=== PATIENT | male | born 1985 | race Caucasian/White ===

== ENCOUNTER 2016-08-28 11:08 | Emergency (ER) | payer BC ==
[~2016-08-28] VITALS: Ht 193 cm; Wt 94.5 kg
[~2016-08-28 11:08] MED LIST: AMOX500T2 PO; FLUT16SP EA NOSTRIL; PRED20TA PO; PRED50TA PO
[2016-08-28 11:11] VITALS: Ht 193 cm; Wt 94.5 kg
--- OUTSIDE RECORDS SUMMARY | 2016-08-28 11:14 | XMS REPORT | Continuity of Care Document ---
Author Author [facility] Organization [facility] Address Unknown Phone Unavailable Support Name Relationship Address Phone RADHAJAI PETTY Brionna REDD Caregiver [address] [place] [address] Unavailable ULICES GLEZ Next Of Kin [address] [place] [id number] Insurance Providers Guarantor Savage Glez Address [address] [place] [address] Email [email or web address] [email or web address] Other Policy Number [id number] Subscriber's Name ShahrzadRyanne maguirent Relationship 18 Self Group Number [id number] Chief Complaint and Reason for Visit Chief Complaint General Reason for Visit Sinus pain [id number] Problems Past Problems Medical Problem Onset Date Pain, dental Unknown Sinus pain Unknown Medications Current Home Medications Medication Dose Units Route Directions Days Qty Instructions Start Date Fluticasone Propionate (Fluticasone Prop 50 Mcg/Actuation Nasal [place]) 120 [place]/16 G [place] 2 [place] Each Nostril Daily 30 Days [address] [employer] [facility] [facility] [address] [facility] [phone] 08/14/16 Prednisone 50 Mg Tablet 50 Mg Oral Give With Breakfast 5 Days 5 Tablet Take 1 tablet, by mouth, once a day with breakfast. Supervising physician Dr. Ricky Lane [employer] [facility] [address] [facility] [phone] 08/14/16 Social History No social history. Hospital Discharge Instructions No hospital discharge instructions. Plan of Care Discharge Date 08/14/16 9:48am Disposition 01 DISCHARGED HOME, SELF-CARE Condition at Discharge Stable Instructions/Education Provided Sinusitis (ED) Toothache (ED) Prescriptions See Medication Section Additional Instructions/Education Take ibuprofen up to 800 mg every 8 hours as needed for sinus and dental pain. Use prednisone daily as directed. Use fluticasone nasal spray or an equivalent daily as directed for the next 3-4 weeks. Follow with dentist if symptoms are not improving in the next 10 days. Follow with primary care provider if symptoms are not improving or if they're worsening. Functional Status No functional status results. Allergies, Adverse Reactions, Alerts No known allergies. Immunizations No immunization records. Vital Signs Acute Vital Signs Vital Response Date/Time Temperature (Fahrenheit) 97.4 deg F (96.8 - 99.1) 08/14/2016 9:10am Temperature (Calculated Celsius) 36.18146 degrees C (36.0 - 37.3) 08/14/2016 9:10am Pulse Rate (adult) 93 bpm (60 - 100) 08/14/2016 9:10am O2 Sat by Pulse Oximetry 94 % (90 - 100) 08/14/2016 9:10am Blood Pressure 124/85 mm Hg 08/14/2016 9:10am Height (Inches) 76.75 inches 08/14/2016 9:10am Weight (Kilograms) 94.700 kg 08/14/2016 9:10am Body Mass Index (BMI) 24.0 08/14/2016 9:10am Results No known relevant diagnostic tests, laboratory data and/or discharge summary. Procedures No known history of procedures. Encounters Encounter Location Arrival/Admit Date Discharge/Depart Date Attending Provider Departed Emergency Room [facility] 08/14/16 9:03am 08/14/16 9: 48am JAI ALVARADO APRN Recent Diagnosis
[2016-08-28] MEDS ORDERED: NAPR500T3 PO (11:29)
[2016-08-28] MEDS ORDERED: HYDR-347 PO ×2 (11:29→15:03)
[2016-08-28] MEDS ORDERED: CYCL-375 PO (11:29)
[2016-08-28] MEDS ORDERED: CLIN-89 PO (11:29)
--- NOTE | 2016-08-28 11:44 | NUR ---
PROVIDER Carla PENALOZA TREATMENT PLANT MECHANIC IN TO SEE PATIENT.
[2016-08-28] MEDS ORDERED: MORPHINE SULFATE 2 MG SYRINGE IV ONE ×2 (12:00→13:45)
[2016-08-28] MEDS ORDERED: ONDANSETRON 4mg/2ml INJECTION IV ONE (12:00)
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
[2016-08-28 12:21] LABS: BASOPHILS % (AUTO) 0.3 % (0-2); EOSINOPHILS # (AUTO) 0.3 T/MM3 (0-0.5); EOSINOPHILS % (AUTO) 2.6 % (0-4); HGB - HEMOGLOBIN 14.3 GM/DL (13.5-17.5); IMMATURE GRANULOCYTE % (AUTO) 0.9 % (0.0-0.5); LYMPHOCYTES # (AUTO) 1.9 T/MM3 (1-4.8); LYMPHOCYTES % (AUTO) 17.4 % (23-45); MEAN CORPUSCULAR HGB 30.1 UUG (26-34); MEAN CORPUSCULAR HGB CONC(MCHC 33.3 GM/DL (31-37); MEAN CORPUSCULAR VOLUME 90.5 UM3 (80-100); MEAN PLATELET VOLUME 9.4 UM3 (9.4-12.4); MONOCYTES % (AUTO) 9.3 % (0-9.0); NEUTROPHILS #(AUTO)-ABSOLUTE 7.6 T/MM3 (1.8-7.7); NEUTROPHILS % (AUTO) 69.5 % (33-66); RED BLOOD COUNT 4.75 M/MM3 (4.50-5.90)
[2016-08-28 12:29] LABS: LACTATE - LACTIC ACID 0.7 MMOL/L (0.6-2.2)
[2016-08-28 12:35] LABS: ANION GAP 12 MEQ/L (5-15); BUN/CREATININE RATIO 16 RATIO (6-26); CALCIUM 9.9 MG/DL (8.4-10.2); CHLORIDE 97 MEQ/L (98-107); CO2 - CARBON DIOXIDE 32 MEQ/L (22-30); CREATININE 0.9 MG/DL (0.8-1.5); GLOMERULAR FILTRATION RATE 100; GLUCOSE 101 MG/DL (75-110); POTASSIUM 4.5 MEQ/L (3.6-5); SODIUM 141 MEQ/L (134-144)
[2016-08-28] MEDS ORDERED: NORMAL SALINE 1,000 ML IV ONE (13:00)
[2016-08-28] MEDS ORDERED: IOHEXOL 300 MG/ML 75ml INJECTION ONE (13:08)
[2016-08-28] MEDS ORDERED: NORMAL SALINE 100 ML ONE (13:08)
[2016-08-28] MEDS ORDERED: SALINE FLUSH 10ml SYRINGE ONE (13:08)
--- NOTE | 2016-08-28 13:11 | NUR ---
TO CT PER CART.
--- NOTE | 2016-08-28 13:27 | NUR ---
BACK FROM CT
--- NOTE | 2016-08-28 13:31 | NUR ---
STATUS PATIENT STATES, "MY PAIN IS COMING BACK, A 09/22." NOTIFIED Carla PENALOZA APRN. NEW ORDER FOR MORPHINE RECEIVED.
--- NOTE | 2016-08-28 14:25 | NUR ---
PROVIDERS Carla PENALOZA APRN AND DR SUNSHINE IN TO SEE PATIENT.
--- NOTE | 2016-08-28 14:49 | NUR ---
PROVIDER Carla PENALOZA LATIN AMERICAN STUDIES DIRECTOR IN TO SEE PATIENT.
[2016-08-28 15:17] VITALS: BP 121/75; PULSE 75; RESP 14; TEMP 98.9; O2SAT 98
--- NOTE | 2016-08-28 20:36 | DI ---
Indication: ITS.REASON: NECK PAIN, CONCERN FOR FACIAL ABSCESS PROCEDURE: CT NECK W/CONTRAST: Encounter: Initial Comparison: None Technique: Axial CT images were performed through the neck with intravenous contrast. Coronal and sagittal two-dimensional reformats Automated Exposure Control and Iterative Reconstruction dose reducing techniques were utilized. Contrast: Omnipaque 300 75 mL Findings: The lung apices are clear. Thyroid gland is normal. No mucosal based mass lesion identified. Skull base is normal. Borderline prominent right submandibular lymph nodes. No focal fluid collection or abscess identified. The parotid and submandibular glands appear normal. Periodontal disease with periapical abscesses involving the right medial and left lateral maxillary incisors. Prior dental restorations causing artifact. Impression: No drainable abscess or adenopathy seen. There is a preliminary report by [facility] radiologic. .
== END 2016-08-28 15:17 | disposition home or self-care (01) ==
LOC: ED 11:08
DX: K04.7 Periapical abscess without sinus (principal)
CPT/HCPCS: 36415; 70491; 80048; 83605; 85025; 87040; 96361; 96374; 96375; 96376; 99284; J2405; J2930; J7030; J7050; Q9967